=== PATIENT | male | born 1965 | race Caucasian/White ===

== ENCOUNTER → 2019-06-13 08:12 | Outpatient (CLI) | payer BC ==
--- NOTE | 2019-06-19 08:48 | EC ---
PATIENT:LOUISE BOCANEGRA DATE OF SERVICE: 06/13/19 SEX: M MEDICAL RECORD: [id number] DATE OF : [birth year] [facility] AGE OF PAT[facility]: 53 ADMISSION DATE: 06/13/19 REFERRING PHYSICIAN: INTERPRETING PHYSICIAN: JANETTE AMBROCIO MD ECHOCARDIOGRAM REPORT ECHO CHARGES 4 ECHO COMPLETE Date: 06/13/19 CLINICAL DIAGNOSIS: MITRAL VALVE PROLAPSE ECHOCARDIOGRAPHIC MEASUREMENTS (adult normal given) AC root (d.<3.7cm) 3.3 cm LV Septum d (<1.2 cm> 1.0 cm Valve Excursion 1.6 cm LV Septum (systole) 1.3 cm Left Atria (s.<4.0cm> 3.8 cm LVPW d(<1.2cm) 1.3 cm RV (d.<2.3cm) 3.3 cm LVPW (sytole) 1.7 cm LV diastole(<5.6CM) 5.4 cm MV E-F(>70mm/sec) cm LV systole 3.6 cm LVOT Diameter 1.9 cm MV exc.(>10mm) 2.0 cm Est.ejection fraction (50-75%) % DOPPLER: LVIT cm/sec A 70.0 cm/sec E 82.0 cm/sec LA cm/sec RVSP 25 mmHg LVOT 110 cm/sec AOP1/2T m/s Asc. Ao 129 cm/sec RVOT 57 cm/sec RA cm/sec PA 103 cm/sec AV Gradient Peak 6.65 mmHg AV Mean 3.80 mmHg AV Area 2.2 cm MV Gradient Peak 2.75 mmHg MV Mean 1.18 mmHg MV Area cm COMMENTS: Academic Director: 2 DAVIDSON SHEIKH Ornamental Painter: 3 Dr. Vazquez TAPE# PACS Pericardial Effusion N DATE OF SERVICE: Adequate 2D, color flow, spectral Doppler, and M-mode. No LVH. LV internal dimensions are normal. Wall motion is normal. EF is greater than or equal to 55%. Aortic valve is tricuspid. No evidence of stenosis by Doppler interrogation. Left atrium normal at 3.8 cm. Mitral valve shows prolapse of the posterior leaflet. Mild plus MR. Right-sided chambers are grossly normal. Trace TR by color flow imaging. TRANSINT:[id number] Voice Confirmation ID: [id number] DOCUMENT ID: [id number] ECHOCARDIOGRAM REPORT [id number] LOUISE BOCANEGRA GREGORY A MD at 0848 CC: [id number] DICTATION DATE: 06/14/19 141 [employer] DIRECTOR: 06/14/19 1532 DEP CLI 06/13/19 [id number] [place] [address]
== END | disposition home or self-care (01) ==
LOC: D.HCCECHO 08:12
PROVIDERS: ATTEND Internal Medicine Interventional Cardiology
DX: I34.1 Nonrheumatic mitral (valve) prolapse (principal)